=== PATIENT | male | born 1960 | race Caucasian/White ===

== ENCOUNTER → 2024-01-01 08:10 | Outpatient (REF) | payer BC, SELFPAY ==
[2024-01-01 08:55] LABS: % Eosinophils 4.3 % (0-6); % Immature Granulocytes 0.2 % (0-0.5); % Lymphocytes 26.7 % (20.5-51.1); % Neutrophils 57.8 % (42.2-75.2); Absolute Eosinophils 0.2 10^3/uL (0-0.7); Absolute Lymphocytes 1.1 10^3/uL (1.2-3.4); Absolute Monocytes 0.4 10^3/uL (0.1-0.6); Absolute Neutrophils 2.4 10^3/uL (1.4-6.5); Hematocrit 44.6 % (39.0-52.0); Hemoglobin 15.8 g/dL (13.0-18.0); Mean Corp Hgb Conc. 35.4 g/dL (33.0-37.0); Mean Corpuscular Hgb 33.5 pg (27.0-31.0); Mean Corpuscular Volume 94.5 fL (80.0-94.0); Mean Platelet Volume 9.1 fL (7.4-10.4); Nucleated Red Blood Cells % 0 % (-); Platelet Count 123 10^3/uL (130-400); Red Blood Cell Count 4.72 10^6/uL (4.70-6.10); Red Cell Dist. Width 12.5 % (11.5-14.5); White Blood Cell Count 4.2 10^3/uL (4.8-10.8)
[2024-01-01 09:09] LABS: ALT (SGPT) 19 U/L (0-50); AST (SGOT) 33 U/L (17-59); Albumin 4.1 g/dl (3.5-5.0); Alkaline Phosphatase 57 U/L (38-126); Blood Urea Nitrogen 27 mg/dl (9-20); Calcium 9.9 mg/dl (8.4-10.2); Carbon Dioxide 25 mmol/L (22-30); Chloride 104 mmol/L (98-107); Glucose 93 mg/dl (70-99); Potassium 4.1 mmol/L (3.5-5.1); Sodium 140 mmol/L (135-145); Total Bilirubin 1.2 mg/dl (0.2-1.3); Total Protein 6.5 g/dl (6.3-8.2); eGFR > 60.00
[2024-01-01 12:29] LABS: Erythrocyte Sed Rate 4 mm/hour (0-20)
== END ==
LOC: RAD 08:10
PROVIDERS: ATTENDING PHYSICIAN Internal Medicine; FAMILY PHYSICIAN Internal Medicine
DX: R51.9 Headache, unspecified (principal)
CPT/HCPCS: 36415; 70450; 80053; 85025; 85652; 86140

== ENCOUNTER 2024-01-11 13:55 | Outpatient (RCR) | payer BC, SELFPAY | END 2024-01-12 07:46 | disposition home or self-care (01) | LOC: RPT 13:55 | PROVIDERS: ATTENDING PHYSICIAN Physician Assistant; FAMILY PHYSICIAN Internal Medicine | DX: M54.12 Radiculopathy, cervical region (principal); M79.621 Pain in right upper arm; Z73.6 Limitation of activities due to disability | CPT/HCPCS: 97110; 97112; 97140; 97162 ==

== ENCOUNTER → 2024-03-27 17:54 | Outpatient (REF) | payer BC, SELFPAY | LOC: MRI 17:54 | PROVIDERS: ATTENDING PHYSICIAN Physician Assistant Medical; FAMILY PHYSICIAN Internal Medicine | DX: M48.062 Spinal stenosis, lumbar region with neurogenic claudication (principal); Z98.1 Arthrodesis status; M54.2 Cervicalgia; M48.02 Spinal stenosis, cervical region | CPT/HCPCS: 72141; 72158; A9575 ==

== ENCOUNTER → 2025-03-27 11:23 | Outpatient (REF) | payer BC, SELFPAY ==
[2025-03-27 12:06] LABS: % Basophils 0.9 % (0-2); % Eosinophils 3.2 % (0-6); % Lymphocytes 24.9 % (20.5-51.1); % Monocytes 9.7 % (1.7-9.3); % Neutrophils 61.3 % (42.2-75.2); Absolute Eosinophils 0.1 10^3/uL (0-0.7); Absolute Lymphocytes 0.9 10^3/uL (1.2-3.4); Absolute Monocytes 0.3 10^3/uL (0.1-0.6); Absolute Neutrophils 2.1 10^3/uL (1.4-6.5); Hematocrit 45.1 % (39.0-52.0); Mean Corp Hgb Conc. 33.3 g/dL (33.0-37.0); Mean Corpuscular Hgb 32.1 pg (27.0-31.0); Mean Corpuscular Volume 96.6 fL (80.0-94.0); Mean Platelet Volume 8.9 fL (7.4-10.4); Nucleated Red Blood Cells % 0 % (-); Platelet Count 118 10^3/uL (130-400); Red Blood Cell Count 4.67 10^6/uL (4.70-6.10); Red Cell Dist. Width 12.9 % (11.5-14.5); White Blood Cell Count 3.5 10^3/uL (4.8-10.8)
[2025-03-27 12:19] LABS: Urine Albumin Negative (Neg - Trace); Urine Bilirubin Negative (Negative); Urine Character Clear (Clear); Urine Color Yellow; Urine Glucose Negative (Negative); Urine Ketone Negative (Negative); Urine Leukocyte 1+ (Negative); Urine Nitrite Negative (Negative); Urine Occult Blood Negative (Negative); Urine Urobilinogen 1+ (Neg - 1+)
[2025-03-27 13:58] LABS: Urine Amorphous Seen; Urine Mucus Moderate; Urine Squamous Cell 0-2 /LPF (Few); Urine Urothelial Cell 0-2 /LPF (FEW)
[2025-03-27 13:59] LABS: Urine White Cell 0-2 /HPF (0-5)
[2025-03-27 14:00] LABS: Urine Red Blood Cell 0-2 /HPF (0-2)
[2025-03-27 14:21] LABS: ALT (SGPT) 21 U/L (0-50); AST (SGOT) 35 U/L (17-59); Albumin 4.2 g/dl (3.5-5.0); Alkaline Phosphatase 46 U/L (38-126); Blood Urea Nitrogen 22 mg/dl (9-20); Calcium 9.4 mg/dl (8.4-10.2); Carbon Dioxide 27 mmol/L (22-30); Chloride 109 mmol/L (98-107); Glucose 78 mg/dl (70-99); HDL Cholesterol 58 mg/dl; LDL Cholesterol, Calculated 96 mg/dl; Potassium 4.1 mmol/L (3.5-5.1); Sodium 141 mmol/L (135-145); Total Bilirubin 1.5 mg/dl (0.2-1.3); Total Cholesterol 164 mg/dl (50-199); Total Protein 6.5 g/dl (6.3-8.2); Triglyceride 51 mg/dl (10-149); Very Low Density Lipoprotein 10 mg/dl (0-30); eGFR > 60.00
[2025-03-27 14:47] LABS: PSA, Total - Screen 2.42 ng/ml (0.0-4.0)
== END ==
LOC: REG 11:23
PROVIDERS: ATTENDING PHYSICIAN Internal Medicine
DX: J06.9 Acute upper respiratory infection, unspecified (principal); M48.062 Spinal stenosis, lumbar region with neurogenic claudication; N40.1 Benign prostatic hyperplasia with lower urinary tract symptoms; Z00.00 Encounter for general adult medical examination without abnormal findings
CPT/HCPCS: 36415; 80053; 80061; 81003; 81015; 85025; G0103

== ENCOUNTER → 2025-06-25 11:04 | Outpatient (REF) | payer BC, MEDICARE, SELFPAY | LOC: PAVMRI 11:04 | PROVIDERS: ATTENDING PHYSICIAN Internal Medicine | DX: M48.062 Spinal stenosis, lumbar region with neurogenic claudication (principal); M51.362 Other intervertebral disc degeneration, lumbar region with discogenic back pain and lower extremity pain | CPT/HCPCS: 72158; A9575 ==

== ENCOUNTER → 2025-07-10 12:36 | Outpatient (REF) | payer BC, MEDICARE, SELFPAY ==
[2025-07-10 14:23] LABS: Hematocrit 45.2 % (39.0-52.0); Hemoglobin 15.2 g/dL (13.0-18.0); Mean Corp Hgb Conc. 33.6 g/dL (33.0-37.0); Mean Corpuscular Volume 95.8 fL (80.0-94.0); Nucleated Red Blood Cells % 0 % (-); Platelet Count 160 10^3/uL (130-400); Red Cell Dist. Width 12.9 % (11.5-14.5)
== END ==
LOC: REG 12:36
PROVIDERS: ATTENDING PHYSICIAN Physician Assistant; FAMILY PHYSICIAN Internal Medicine
DX: D61.818 Other pancytopenia (principal); M47.816 Spondylosis without myelopathy or radiculopathy, lumbar region
CPT/HCPCS: 36415; 72110; 85025

== ENCOUNTER → 2025-07-17 07:41 | Outpatient (REF) | payer BC, SELFPAY | LOC: HWRAD 07:41 | PROVIDERS: ATTENDING PHYSICIAN Physician Assistant; FAMILY PHYSICIAN Internal Medicine | DX: M47.816 Spondylosis without myelopathy or radiculopathy, lumbar region (principal) | CPT/HCPCS: 72131 ==